=== PATIENT | male | born 1970 | race Caucasian/White ===

== ENCOUNTER 2023-04-09 10:37 | Observation (INO) | payer BC ==
[2023-04-09] MEDS ORDERED: Nitroglycerin 0.4 MG TAB (25 Tab Bottle) SL PRN (13:06)
[2023-04-09] MEDS ORDERED: Ondansetron ODT 4 MG TAB PO PRN (13:09)
[2023-04-09 14:16] LABS: Magnesium 2.1 mg/dL (1.6-2.6)
[2023-04-09 15:12] LABS: Troponin I Less than 0.010 ng/mL (< 0.028)
[2023-04-09 15:30] VITALS: BMI 37.0
[2023-04-09 16:33] LABS: Troponin I 0.101 ng/mL (< 0.028)
[2023-04-09] MEDS: Acetaminophen 325 MG TAB PO PRN ×2 (17:01→21:25)
[2023-04-10] MEDS: Acetaminophen 325 MG TAB PO PRN (02:28)
[2023-04-10 05:18] LABS: Anion Gap 13 mmol/L (10-20); BUN (Urea Nitrogen) 11 mg/dL (8.4-25.7); Calc. Creatinine Clearance 180 mL/min (70-130); Calcium 8.8 mg/dL (7.8-10.44); Carbon Dioxide 21 mmol/L (22-29); Chloride 105 mmol/L (98-107); Estimated GFR 106; Glucose 120 mg/dL (70-105); Potassium 3.9 mmol/L (3.5-5.1); Sodium 135 mmol/L (136-145)
[2023-04-10 05:20] LABS: #Eosinphils 0.1 10x3/uL (0.0-0.5); #Monocytes 0.8 10x3/uL (0.0-1.1); #Neutrophils 9.7 10x3/uL (1.5-8.4); %Basophils 0.2 % (0.0-2.0); %Eosinophils 0.5 % (0.0-6.0); %Lymphocytes 11.1 % (18.0-47.0); %Monocytes 6.4 % (0.0-10.0); %Neutrophils 81.5 % (40.0-75.0); Hematocrit 45.7 % (38.8-50.0); Hemoglobin 14.9 g/dL (13.5-17.5); Mean Corpuscular HGB CONC 32.6 g/dL (32.0-36.0); Mean Corpuscular Hemoglobin 28.4 pg (27.0-33.0); Mean Corpuscular Volume 87.2 fl (81.2-95.1); Mean Platelet Volume 10.7 fl (7.4-10.4); Platelet Count 241 10x3/uL (150-450); RBC Distribution Width 14.2 % (11.5-14.5); Red Blood Cell (RBC) Count 5.24 10x6/uL (4.32-5.72); White Blood Cell (WBC) Count 11.9 10x3/uL (3.5-10.5)
[2023-04-10] MEDS ORDERED: Carvedilol 3.125 MG TAB PO SCH (05:30)
[2023-04-10 05:33] LABS: Cardiac Risk 4.4 (Less than 4.5); Cholesterol 179 mg/dl (< 200 Desired); HDL Cholesterol 41 mg/dL (>60 Neg Risk); LDL Cholesterol, Calculated 113 mg/dL; Triglycerides 124 mg/dL (Less than 150)
[2023-04-10] MEDS: Aspirin Chewable 81 MG TAB PO SCH (08:36)
[2023-04-10] MEDS: Carvedilol 6.25 MG TAB PO SCH ×3 (08:36→17:15)
[2023-04-10] MEDS: Losartan 25 MG TAB PO SCH (08:37)
[2023-04-10] MEDS ORDERED: Communication Order-Pharmacy FS SCH (11:30)
[2023-04-10 15:10] LABS: Troponin I 0.021 ng/mL (< 0.028)
[2023-04-10 19:43] LABS: Troponin I 0.019 ng/mL (< 0.028)
[2023-04-10] MEDS ORDERED: Atorvastatin Calcium 40 MG TAB PO SCH (21:00)
[2023-04-10 23:21] LABS: Troponin I 0.016 ng/mL (< 0.028)
[2023-04-11 05:04] LABS: #Eosinphils 0.2 10x3/uL (0.0-0.5); #Monocytes 0.7 10x3/uL (0.0-1.1); #Neutrophils 5.9 10x3/uL (1.5-8.4); %Basophils 0.2 % (0.0-2.0); %Eosinophils 1.8 % (0.0-6.0); %Lymphocytes 20.1 % (18.0-47.0); %Monocytes 7.7 % (0.0-10.0); %Neutrophils 69.8 % (40.0-75.0); Hematocrit 46.6 % (38.8-50.0); Hemoglobin 15.2 g/dL (13.5-17.5); Mean Corpuscular HGB CONC 32.6 g/dL (32.0-36.0); Mean Corpuscular Hemoglobin 28.6 pg (27.0-33.0); Mean Corpuscular Volume 87.8 fl (81.2-95.1); Mean Platelet Volume 10.5 fl (7.4-10.4); Platelet Count 255 10x3/uL (150-450); RBC Distribution Width 14.2 % (11.5-14.5); Red Blood Cell (RBC) Count 5.31 10x6/uL (4.32-5.72); White Blood Cell (WBC) Count 8.5 10x3/uL (3.5-10.5)
[2023-04-11 05:13] LABS: ALT (SGPT) 22 U/L (8-55); AST (SGOT) 9 U/L (5-34); Alkaline Phosphatase 76 U/L (40-110); Anion Gap 14 mmol/L (10-20); BUN (Urea Nitrogen) 11 mg/dL (8.4-25.7); Bilirubin, Total 0.5 mg/dL (0.2-1.2); Calc. Creatinine Clearance 173 mL/min (70-130); Carbon Dioxide 23 mmol/L (22-29); Chloride 105 mmol/L (98-107); Estimated GFR 105; Globulin 2.8 g/dL (2.4-3.5); Glucose 115 mg/dL (70-105); PTT 31.1 sec (22.0-33.0); Potassium 4.2 mmol/L (3.5-5.1); Protein, Total 6.8 g/dL (6.0-8.3); Prothrombin Time 10.4 sec (9.5-12.1); Sodium 138 mmol/L (136-145)
[2023-04-11] MEDS: Losartan 25 MG TAB PO SCH (05:46)
[2023-04-11] MEDS: Aspirin Chewable 81 MG TAB PO SCH (05:46)
[2023-04-11] MEDS: Carvedilol 6.25 MG TAB PO SCH ×2 (05:46→18:24)
[2023-04-11] MEDS ORDERED: Lisinopril 5 MG TAB PO SCH (09:00)
[2023-04-11] MEDS ORDERED: Heparin 10,000 UNITS/ 10 ML VIAL ONE (09:36)
[2023-04-11] MEDS ORDERED: Nitroglycerin 50 MG/250 ML BOT 250 ML ONE (09:36)
[2023-04-11] MEDS ORDERED: fentaNYL 50 mcg/mL 1 mL Vial ONE (09:37)
[2023-04-11] MEDS ORDERED: Verapamil 5 MG/2 ML VIAL ONE (09:37)
[2023-04-11] MEDS ORDERED: Midazolam HCl 2 mg/2 ml Vial ONE (09:37)
[2023-04-11] MEDS ORDERED: Lidocaine 1% (PF) 30 ML VIAL ONE (09:42)
[2023-04-11] MEDS ORDERED: Acetaminophen/Codeine 30-300mg Tablet PO PRN ×2 (10:39)
[2023-04-11] MEDS ORDERED: Sodium Chloride 0.9% 200 ML IV PRN (10:39)
[2023-04-11] MEDS ORDERED: Nitroglycerin 0.4 MG TAB (25 Tab Bottle) SL PRN (10:39)
[2023-04-11] MEDS ORDERED: Iopamidol 300 61% 100 ML VIAL FS ONE (11:28)
[2023-04-11 14:39] LABS: Hemoglobin A1c 6.6 % (4.0-6.0)
[2023-04-11 18:51] VITALS: BP 121/81; TEMP 98
== END 2023-04-11 18:14 | disposition short-term general hospital (02) ==
LOC: CSHTELE 12:02
PROVIDERS: ADMIT Internal Medicine; ATTEND Nurse Practitioner Family
DX: I25.110 Atherosclerotic heart disease of native coronary artery with unstable angina pectoris (principal); I10 Essential (primary) hypertension; E78.5 Hyperlipidemia, unspecified; E66.9 Obesity, unspecified; Z68.37 Body mass index [BMI] 37.0-37.9, adult; Z87.891 Personal history of nicotine dependence
CPT/HCPCS: 36415; 80048; 80053; 80061; 83036; 83735; 84443; 84484; 85025; 85610; 85730; 93306; 93459; 94760; 96372; 99152; 99153; C1769; C1894; G0378; J1644; J1650; J2001; J2250; J3010; Q9967